=== PATIENT | male | born 1975 | race Caucasian/White ===

== ENCOUNTER 2018-05-13 03:45 | Emergency (ER) | payer SELFPAY ==
[~2018-05-13] VITALS: Ht 188 cm; Wt 118.0 kg
[2018-05-13 03:57] VITALS: BP 125/84
== END 2018-05-13 05:10 | disposition left against medical advice (07) ==
LOC: ER 04:33
DX: F41.9 Anxiety disorder, unspecified (principal); Z53.21 Procedure and treatment not carried out due to patient leaving prior to being seen by health care provider